=== PATIENT | female | born 1950 | race Caucasian/White ===

== ENCOUNTER → 2017-04-29 | Outpatient (CLI) | payer MEDICARE, BC ==
[~2017-04-29] MED LIST: ADVI200T17 PO; ASPI81TA11 PO; SENN8.6T15 PO; SIMV40TA PO; TH S8.6T PO
[2017-04-29 09:29] LABS: AUTOMATED NEUTROPHIL # 4.9 TH/MM3 (1.8-7.7); BASOPHIL % 0.6 % (0.0-2.0); EOSINOPHIL # 0.1 TH/MM3 (0-0.4); EOSINOPHIL % 1.7 % (0.0-4.0); HEMATOCRIT 38.1 % (35.0-46.0); HEMO FLAGS DIFF FINAL; LYMPH % 17.1 % (9.0-44.0); LYMPHOCYTE # 1.3 TH/MM3 (1.0-4.8); MEAN CELL VOLUME 90.2 FL (80.0-100.0); MEAN CORPUSCULAR HEMOGLOBIN 30.4 PG (27.0-34.0); MEAN CORPUSCULAR HGB CONC 33.7 % (32.0-36.0); MONO % 13.7 % (0.0-8.0); NEUT % 66.9 % (16.0-70.0); PLATELET COUNT 348 TH/MM3 (150-450); RED BLOOD COUNT 4.23 MIL/MM3 (4.00-5.30); RED CELL DISTRIBUTION WIDTH 12.3 % (11.6-17.2); WHITE BLOOD COUNT 7.3 TH/MM3 (4.0-11.0)
[2017-04-29 09:53] LABS: ANION GAP 6 MEQ/L (5-15); AST (GOT) 21 U/L (15-37); BICARBONATE 28.7 MEQ/L (21.0-32.0); BLOOD UREA NITROGEN 11 MG/DL (7-18); CHLORIDE 104 MEQ/L (98-107); GLOMERULAR FILTRATION RATE 97 ML/MIN (>89); GLUCOSE,FASTING 100 MG/DL (74-99); SODIUM (NA) 139 MEQ/L (136-145)
[2017-04-29 09:56] LABS: ALKALINE PHOSPHATASE 67 U/L (45-117); ALT (GPT) 22 U/L (10-53); TOTAL BILIRUBIN ADULT 0.4 MG/DL (0.2-1.0)
[2017-04-29 10:01] LABS: BLOOD, URINE SMALL (NEG); GLUCOSE,URINE NEG (NEG); KETONE, URINE NEG (NEG); MUCUS URINE FEW /lpf (OCC); NITRITE,URINE NEG (NEG); PH, URINE 5.5 (5.0-8.5); SQUAMOUS EPITHELIAL CELL URINE <1 /hpf (0-5); TRANSITIONAL EPI CELLS, URINE <1 /hpf; URINE COLOR LIGHT-YELLOW (YELLW/STRAW)
[2017-04-29 10:11] LABS: COMMENT (UR) CULT NOT INDICATED; CULTURE IF INDICATED CULT NOT INDICATED
--- NOTE | 2017-04-29 10:43 | EKG ---
Date Performed: 04/29/2017 Time Performed: 08:26:25 PTAGE: 67 years EKG: Sinus rhythm WITH OCCASIONAL VENTRICULAR PREMATURE COMPLEXES BORDERLINE ECG NO PREVIOUS TRACING DOCTOR: Timoteo Zaldivar Interpretating Date/Time 04/29/2017 10:42:19
--- NOTE | 2017-04-29 11:52 | RADRPT ---
EXAM DATE/TIME: 04/29/2017 09:22 [facility] COMPARISON: No previous studies available for comparison. INDICATIONS : Pre op for anorectoplasty. MEDICAL HISTORY : None. SURGICAL HISTORY : None. ENCOUNTER: Initial ACUITY: 1 day PAIN SCORE: 0/10 LOCATION: Bilateral upper chest FINDINGS: PA and lateral views of the chest demonstrate the lungs to be symmetrically aerated without evidence of mass, infiltrate or effusion. The cardiomediastinal contours are unremarkable. Osseous structure s are intact. There are surgical clips in the right upper quadrant compatible with prior cholecystect flower. CONCLUSION: 1. No acute cardiopulmonary disease. Timmy Quevedo MD on April 29, 2017 at 10:47 Board Certified Radiologist. This report was verified electronically.
== END ==
LOC: CPRE 08:10
PROVIDERS: ATTEND Colon & Rectal Surgery
DX: Z01.812 Encounter for preprocedural laboratory examination (principal); Z01.810 Encounter for preprocedural cardiovascular examination; Z01.811 Encounter for preprocedural respiratory examination; K64.2 Third degree hemorrhoids; I49.3 Ventricular premature depolarization
CPT/HCPCS: 36415; 71020; 80053; 81001; 85025; 93005

== ENCOUNTER → 2017-05-06 | Day surgery (SDC) | payer MEDICARE, BC ==
[~2017-05-06] VITALS: Ht 160 cm; Wt 70.7 kg
[~2017-05-06] MED LIST changes: +*ONDANSETRON 4 MG VIAL PERIprocedural Use ONLY ONE; +*PROMETHAZINE 25 MG/ML VIAL PERIprocedural use ONLY ONE; +*morphine SULFATE 8 MG/ML PERIprocedure ONLY ONE; +ACETAMINOPHEN 1000 MG/100 ML VIAL IV ONE; +BUPIVACAINE/EPINEPHRINE 0.75% PF 30 ML VIAL OTHER ONE; +CHLORHEXIDINE GLUCONATE 2 % 1 PACK (2 CLOTHS) TOPICAL PRN; +DO NOT ADM ANY ANTICOAGULANT DRUGS PRN; +INSULIN HUMAN REGULAR 1,000 UNITS/10 ML VIAL SQ PRN; +LACTATED RINGER'S 1000 ML IV PRN; +LIDOCAINE HCL 1% 50 ML VIAL ONE; +LIDOCAINE HCL 1% PF 10 ML VIAL ONE; +METOPROLOL TARTRATE 25 MG TAB PO PRN; +MIDAZOLAM HCL 2 MG/2 ML VIAL ONE; +MORPHINE SULFATE 8 MG/ML INJ IV PUSH PRN; +ONDANSETRON HCL 4 MG/2 ML VIAL IV PUSH PRN; +POVIDONE IODINE 5% (ANTISEPSIS KIT) 4 APPLICATIONS EACH NARE PRN; +PROPOFOL 200 MG/20 ML AMP IV ONE; +SILVER SULFADIAZINE/LIDOCAINE CREAM 60 GM JAR RECTAL ONE; +SODIUM CHLORID 0.9% 500 ML IV PRN; +SUGAMMADEX SODIUM 200 MG/2 ML VIAL IV PUSH ONE; +fentaNYL CITRATE 250 MCG/5 ML AMP ONE; +oxyCODONE/ACETAMINOPHEN 10 MG/325 MG TAB PO PRN
--- NOTE | 2017-05-06 09:30 | PD.HP.UP ---
H&P Update Note The Pre-Admit History and Physical Examination regarding the above named patient was reviewed (including, but not limited to, vital signs, heart, lungs, co-morbid conditions), and upon re-examination it is noted that: the patient's condition has not significantly changed since the last examination. Janes Estrada MD May 06, 2017 09:30
[2017-05-06 10:20] VITALS: BP 120/73; PULSE 99; RESP 16; TEMP 97.1; O2SAT 97
[2017-05-06 15:28] VITALS: BP 128/63; PULSE 93; RESP 16; TEMP 98.1; O2SAT 99
--- NOTE | 2017-05-07 13:26 | MP ---
cc: MACEY PIKE M.D. DATE OF SURGERY May 06, 2017 PREOPERATIVE DIAGNOSIS Grade 3 internal and external hemorrhoids, anal pain. History of a fissure. PROCEDURE Exam under anesthesia with anorectoplasty. POSTOPERATIVE DIAGNOSIS Grade 3 internal and external hemorrhoids SURGEON Dr. Pike PROCEDURE The patient was placed in the supine position. After adequate general anesthesia, she was placed in the prone jackknife position, her buttocks taped apart, prepped with Betadine solution and draped in the usual sterile fashion. Local anesthesia was obtained by injection of 1% Xylocaine/0.5% Marcaine with epinephrine. 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 With gentle dilatation, however, this appeared to open to an acceptable degree and sphincterotomy did not appear to be necessary. Examination revealed rather large hemorrhoids in the left lateral position and the right posterior position. The anterior cushion on the right side was pretty small and almost atrophic. First an elliptical incision was made over the large hemorrhoidal mass in the left lateral quadrant and the tissue dissected off the internal and external sphincter. The pedicle was narrowed and divided using electrocautery. The mucosal defect was then closed using a running chromic catgut suture with several 3-0 Vicryl sutures in a [id number] fashion for hemostasis. Similar dissection was then performed in the right posterior position. The right anterior cushion was small and did not appear sufficiently enlarged or prolapsing to require excision. After surgery on both quadrants was completed, hemostasis appeared adequate. The lumen size of the anal canal was more than adequate. A small Surgicel dressing was placed in the anal canal and a large fluff dressing placed externally. The patient tolerated the procedure quite well and was brought to the recovery room in stable condition. Sponge and needle counts were correct at the end of the procedure. MD ASAD Santiago/SSB /9:51 PM /1:23 PM
== END | disposition home or self-care (01) ==
LOC: HSDC 09:51
PROVIDERS: ATTEND Colon & Rectal Surgery
DX: K64.2 Third degree hemorrhoids (principal)
CPT/HCPCS: 00902; 46260; 88304; J0131; J2250; J2270; J2405; J3010; J7120; J2550